=== PATIENT | female | born 1970 | race American Indian/Alaskan Native ===

== ENCOUNTER 2019-03-23 01:03 | Emergency (ER) | payer MEDICAID ==
[2019-03-23 01:13] VITALS: BP 137/77
--- NOTE | 2019-03-23 02:45 | Emergency Department Report ---
ED Anxiety HPI - General Chief Complaint: Dyspnea/Respdistress Stated Complaint: JAYASHREE Time Seen by Provider: 03/23/19 02:14 Source: patient Mode of arrival: Ambulatory Limitations: No Limitations - History of Present Illness Initial Comments: 48-year-old female hypothyroid disease currently on Synthroid and anxiety presents to Hospital complaining of secondary to anxiety the last 1-2 weeks. Patient has intermittent shaking arm and feeling uncomfortable with deep inspiration. Patient denies pain with deep inspiration. Occasional cough noted which patient relates to difficulty breathing due to her anxiety. She denies history of PE/DVT, smoking, recent travel, control pill use, calf tenderness, or leg edema. Patient is compliant with her Zoloft. Patient states she has received Xanax and Ativan for her symptoms and prefers Ativan. [place] prescription monitoring site reviewed and patient last received Ativan 0.5 mg 6 tablets October 2018. Her doctors/psychiatrist is located [facility]. - Related Data Home Medications: Previous Rx's Medication Instructions Recorded Last Taken Type LORazepam [Ativan] 0.5 mg PO BID PRN #6 tab 03/23/19 Unknown Rx hydrOXYzine PAMOATE [Vistaril] 50 mg PO Q6HR PRN #20 capsule 03/23/19 Unknown Rx Allergies/Adverse Reactions: Allergies Allergy/AdvReac Type Severity Reaction Status Date / Time No Known Allergies Allergy Verified 03/23/19 01:12 ED Review of Systems ROS: Stated complaint: JAYASHREE Other details as noted in HPI Comment: All other systems reviewed and negative ED Past Medical Hx - Past Medical History Previous Medical History?: Yes Hx GERD: Yes Hx Psychiatric Treatment: Yes (anxiety) Additional medical history: hypothyroid - Surgical History Past Surgical History?: Yes Additional Surgical History: tonsils. tubes tied - Social History Smoking Status: Never Smoker Substance Use Type: None - Medications Home Medications: Home Medications Medication Instructions Recorded Confirmed Last Taken Type LORazepam [Ativan] 0.5 mg PO BID PRN #6 tab 03/23/19 Unknown Rx hydrOXYzine PAMOATE [Vistaril] 50 mg PO Q6HR PRN #20 capsule 03/23/19 Unknown Rx ED Physical Exam - General Limitations: No Limitations - Other Other exam information: General: No limitations, patient is alert in no acute distress Head exam: Atraumatic, normocephalic Eyes exam: Normal appearance ENT: Moist mucous membrane Neck exam: Normal inspection, full range of motion Respiratory exam: Clear to auscultation bilateral, no wheezes, rales, crackles, intermittent dry cough without tachypnea or respiratory distress Cardiovascular: Normal rate and rhythm Abdomen: Soft, nondistended, and nontender, with normal bowel sounds, no rebound, or guarding, Extremity: No deformity, intermittent tremor to her right arm (that started only after I began to exam her) No calf tenderness or leg edema Back: Normal Inspection Neurologic: Alert, oriented x3, speech clear, no gross motor or sensory deficit Psychiatric: Normal mood, affect Skin: No rash ED Course Vital Signs 03/23/19 01:07 Temperature 97.8 F Pulse Rate 60 Respiratory 18 Rate Blood Pressure 137/77 O2 Sat by Pulse 98 Oximetry ED Medical Decision Making - Radiology Data Radiology results: report reviewed CHEST 2 VIEWS INDICATION / CLINICAL INFORMATION: cough, cp. COMPARISON: None available. FINDINGS: SUPPORT DEVICES: None. HEART / MEDIASTINUM: No significant abnormality. LUNGS / PLEURA: No significant pulmonary or pleural abnormality. .No pneumothorax. ADDITIONAL FINDINGS: No significant additional findings. IMPRESSION: 1. No acute findings. - Medical Decision Making Patient has a perk PE score of 0 and no symptoms of DVT chest X-ray negative Patient states symptoms are similar to previous anxiety attacks. Will be prescribed a small course of Ativan followed by Vistaril outpatient follow-up with psychiatrist will be recommended. - Differential Diagnosis anxiety, bronchitis, pneumonia, pneumothorax, PE Critical Care Time: No Critical care attestation.: If time is entered above; I have spent that time in minutes in the direct care of this critically ill patient, excluding procedure time. ED Disposition Clinical Impression: Anxiety Disposition: DC-01 TO HOME OR SELFCARE Is pt being admited?: No Does the pt Need Aspirin: No Condition: Stable Instructions: Anxiety (ED) Additional Instructions: Take the medication as prescribed. Follow-up with your doctor or with the doctor/clinic provided. Return if symptoms worsen as indicated by your discharge instructions. Prescriptions: LORazepam [Ativan] 0.5 mg PO BID PRN #6 tab PRN Reason: Anxiety hydrOXYzine PAMOATE [Vistaril] 50 mg PO Q6HR PRN #20 capsule PRN Reason: Anxiety Referrals: PRIMARY CARE, [Primary Care Provider] - 3-5 Days [facility] [Outside] - 3-5 Days [facility] [Provider Group] - 3-5 Days Time of Disposition: 03:05
--- NOTE | 2019-03-23 02:50 | XRay Report ---
CHEST 2 VIEWS INDICATION / CLINICAL INFORMATION: cough, cp. COMPARISON: None available. FINDINGS: SUPPORT DEVICES: None. HEART / MEDIASTINUM: No significant abnormality. LUNGS / PLEURA: No significant pulmonary or pleural abnormality. .No pneumothorax. ADDITIONAL FINDINGS: No significant additional findings. IMPRESSION: 1. No acute findings. Signer Name: Vega Gonzalez MD Signed: 03/23/2019 2:45 AM Workstation Name: [id number]
== END 2019-03-23 03:23 | disposition home or self-care (01) ==
LOC: ED 01:03
DX: F41.9 Anxiety disorder, unspecified (principal); K21.9 Gastro-esophageal reflux disease without esophagitis; E03.9 Hypothyroidism, unspecified; Z79.899 Other long term (current) drug therapy
CPT/HCPCS: 71046

== ENCOUNTER 2019-03-25 00:02 | Emergency (ER) | payer MEDICAID ==
[2019-03-25 00:21] VITALS: BP 109/71
--- NOTE | 2019-03-25 00:41 | XRay Report ---
CHEST 1 VIEW INDICATION / CLINICAL INFORMATION: Chest Pain. COMPARISON: None available. FINDINGS: SUPPORT DEVICES: None. HEART / MEDIASTINUM: No significant abnormality. LUNGS / PLEURA: No significant pulmonary or pleural abnormality.. No pneumothorax. ADDITIONAL FINDINGS: No significant additional findings. IMPRESSION: 1. No acute findings. Signer Name: Vega Gonzalez MD Signed: 03/25/2019 12:36 AM Workstation Name: [id number]
[2019-03-25 00:44] LABS: Hemoglobin 11.5 gm/dl (10.1-14.3); Mean Corpuscular HGB Conc 34 % (30-34); Mean Corpuscular Volume 84 fl (79-97); Platelet Count 295 K/mm3 (140-440); Red Blood Count 4.04 M/mm3 (3.65-5.03); Red Cell Distribution Width 16.7 % (13.2-15.2)
[2019-03-25 01:35] LABS: BUN/Creatinine Ratio 10; Blood Urea Nitrogen 7 mg/dL (7-17); Calcium 10.1 mg/dL (8.4-10.2); Hemolysis Index 8
[2019-03-25 03:28] LABS: Basophils % (Manual) 0 % (0.0-1.8); Total Cells Counted 100
[2019-03-25 03:29] LABS: Burr Cells Rare; Platelet Estimate Consistent w Auto
== END 2019-03-25 03:36 | disposition left against medical advice (07) ==
LOC: ED 00:02
DX: R07.89 Other chest pain (principal); Z53.21 Procedure and treatment not carried out due to patient leaving prior to being seen by health care provider
CPT/HCPCS: 36415; 71045; 80048; 84484; 85007; 85025; 93005; 93010